=== PATIENT | male | born 1970 | race Caucasian/White ===

== ENCOUNTER 2016-12-09 08:23 | Day surgery (SDC) | payer OTHER ==
[~2016-12-09] VITALS: Ht 165.1 cm; Wt 68.9 kg
[~2016-12-09 08:23] MED LIST: LO-DOSE ASPIRIN81 M2 PO; MOTRIN800 MG PO; NEURONTIN300 MG PO; ROXICODONE5 MG PO; ULTRAM50 MG PO; ZEGERID OTC 201 EACH PO
== END 2016-12-09 10:42 | disposition home or self-care (01) ==
LOC: PAIN 08:23 → SDC 09:00 → PAIN 10:42
PROC: 3E0S33Z Introduction of Anti-inflammatory into Epidural Space, Percutaneous Approach (ICD-10-PCS; principal; 2016-12-09)
DX: M54.13 Radiculopathy, cervicothoracic region (principal); M50.23 Other cervical disc displacement, cervicothoracic region; F41.1 Generalized anxiety disorder; K21.9 Gastro-esophageal reflux disease without esophagitis; M47.892 Other spondylosis, cervical region
CPT/HCPCS: 93005; J1030; J2250; J3010

== ENCOUNTER 2017-01-01 07:32 | Day surgery (SDC) | payer OTHER ==
[~2017-01-01] VITALS: Ht 165.1 cm; Wt 68.9 kg
== END 2017-01-01 09:15 | disposition home or self-care (01) ==
LOC: PAIN 07:32 → SDC 08:15 → PAIN 08:15
PROC: 3E0S33Z Introduction of Anti-inflammatory into Epidural Space, Percutaneous Approach (ICD-10-PCS; principal; 2017-01-01)
DX: M50.123 Cervical disc disorder at C6-C7 level with radiculopathy (principal); F41.9 Anxiety disorder, unspecified; G89.29 Other chronic pain; M47.22 Other spondylosis with radiculopathy, cervical region; M50.223 Other cervical disc displacement at C6-C7 level; M79.1 Myalgia; K21.9 Gastro-esophageal reflux disease without esophagitis; Z87.891 Personal history of nicotine dependence; Z79.82 Long term (current) use of aspirin; Z88.6 Allergy status to analgesic agent
CPT/HCPCS: J1030; J2250; J3010

== ENCOUNTER 2017-03-05 07:26 | Day surgery (SDC) | payer OTHER ==
[~2017-03-05] VITALS: Ht 165.1 cm; Wt 68.9 kg
[~2017-03-05 07:26] MED LIST changes: +NEURONTIN400 MG PO
== END 2017-03-05 09:53 | disposition home or self-care (01) ==
LOC: PAIN 07:26 → SDC 08:15 → PAIN 09:53
DX: M50.11 Cervical disc disorder with radiculopathy, high cervical region (principal); G89.29 Other chronic pain; M54.2 Cervicalgia; I10 Essential (primary) hypertension; K21.9 Gastro-esophageal reflux disease without esophagitis; Z87.891 Personal history of nicotine dependence; Z79.82 Long term (current) use of aspirin; Z79.891 Long term (current) use of opiate analgesic; Z79.899 Other long term (current) drug therapy
CPT/HCPCS: J1030; J2250; J3010; S0020

== ENCOUNTER 2017-03-12 07:32 | Day surgery (SDC) | payer OTHER ==
[~2017-03-12] VITALS: Ht 165.1 cm; Wt 72.6 kg
== END 2017-03-12 09:05 | disposition home or self-care (01) ==
LOC: PAIN 07:32 → SDC 08:15 → PAIN 08:15
DX: M50.121 Cervical disc disorder at C4-C5 level with radiculopathy (principal); M79.1 Myalgia; K21.9 Gastro-esophageal reflux disease without esophagitis; Z87.891 Personal history of nicotine dependence; Z79.82 Long term (current) use of aspirin; Z79.891 Long term (current) use of opiate analgesic
CPT/HCPCS: J1030; J2250; J3010; S0020

== ENCOUNTER 2018-05-31 06:47 | Day surgery (SDC) | payer OTHER ==
[~2018-05-31] VITALS: Ht 165.1 cm; Wt 69.9 kg
[~2018-05-31 06:47] MED LIST changes: +MOBIC7.5 MG PO; +PRINIVIL5 MG PO
== END 2018-05-31 08:45 | disposition home or self-care (01) ==
LOC: PAIN 06:47 → SDC 07:30 → PAIN 07:30
DX: M47.812 Spondylosis without myelopathy or radiculopathy, cervical region (principal); M54.12 Radiculopathy, cervical region; M50.20 Other cervical disc displacement, unspecified cervical region; K21.9 Gastro-esophageal reflux disease without esophagitis; I10 Essential (primary) hypertension; M79.1 Myalgia; Z87.891 Personal history of nicotine dependence; Z79.82 Long term (current) use of aspirin; Z79.891 Long term (current) use of opiate analgesic; Z88.6 Allergy status to analgesic agent
CPT/HCPCS: J1030; J2250; J3010; S0020

== ENCOUNTER 2018-06-10 07:47 | Day surgery (SDC) | payer OTHER ==
[~2018-06-10] VITALS: Ht 165.1 cm; Wt 69.9 kg
[~2018-06-10 07:47] MED LIST changes: +ADULT ASPIRIN81 MG PO; +CYANOCOBAL1000 MCG/2 IM; +Cholesterol Med PO; +ZEGERID20 MG PO
[2018-06-10] MEDS ORDERED: SIMVASTATIN5 MG PO ×2 (07:58→07:59)
== END 2018-06-10 09:00 | disposition home or self-care (01) ==
LOC: PAIN 07:47 → SDC 08:30 → PAIN 09:00
DX: M47.812 Spondylosis without myelopathy or radiculopathy, cervical region (principal); M54.12 Radiculopathy, cervical region; M50.20 Other cervical disc displacement, unspecified cervical region; G89.29 Other chronic pain; M79.1 Myalgia; K21.9 Gastro-esophageal reflux disease without esophagitis; Z87.891 Personal history of nicotine dependence; Z79.82 Long term (current) use of aspirin; Z79.891 Long term (current) use of opiate analgesic; Z88.6 Allergy status to analgesic agent
CPT/HCPCS: J1030; J2250; J3010; S0020